=== PATIENT | female | born 1955 | race Caucasian/White ===

== ENCOUNTER 2024-09-20 10:13 | Emergency (ER) | payer MEDICARE, SELFPAY ==
--- NOTE | 2024-09-20 10:00 | RT.EKG_ITS ---
APPROVED REPORT Exam: Resting ECG Reason for Exam: dizziness Patient Location: E HR:70 bpm ECG Measurements Heart Rate 70 AXIS MA 157 P 69 QRSd 79 QRS 77 QT 408 T 60 QTc 441 Conclusion Sinus rhythm...normal P axis, V-rate 60- 99
[2024-09-20 10:15] VITALS: BP 129/76; PULSE 68; RESP 10; TEMP 36.6; O2SAT 96
[2024-09-20 10:26] VITALS: RESP 16
--- NOTE | 2024-09-20 10:31 | ED.GENADUL_ITS ---
Discharge Plan Disposition Patient Disposition: Home Condition: Stable Discharge Details Clinical Impression: Dizziness Primary Care Provider: Deanne,Local ED Provider: Dax Cazares Home Meds and New Rx's Prescriptions: New meclizine 25 mg tablet 25 mg PO BID PRN (Reason: dizziness) Qty: 30 0RF Discharge Instructions Additional Instructions: Follow-up with your primary care provider especially your symptoms are continuing in a week. You can take the meclizine as needed for dizziness. If you feel more ill or have new symptoms such as severe chest pain or weakness return to the emergency department for reevaluation HPI General Date/Time Provider Initiated Documentation: 09/20/24 10:17 . Limitations to Documentation: no limitations . Information obtained by: patient . History of Present Illness 69 year old F presents to the emergency department with the chief complaint of dizzy, described as moderate, Patient started experiencing this unknown (when she woke up) and it has been constant. No relieving factors improve symptom(s), No exacerbating factors reported . Patient notes denies chest pain, fever/chills, nausea/vomiting and shortness of breath. Patient did receive the following treatments prior to arrival, none Related Data Home Medications ?Medication ?Instructions ?Recorded ?Confirmed meclizine 25 mg tablet 25 mg PO BID PRN dizziness # 30 tabs 09/20/24 Previous Rx's ?Medication ?Instructions ?Recorded meclizine 25 mg tablet 25 mg PO BID PRN dizziness # 30 tabs 09/20/24 Allergies Allergy/AdvReac Type Severity Reaction Status Date / Time Sulfa (Sulfonamide Allergy Intermediate Unknown Verified 09/20/24 10:21 Antibiotics) Penicillins Allergy Unknown Verified 09/20/24 10:21 General Stated Complaint: Dizzy/Sync LIZET: 3 Review of Systems All systems reviewed & are unremarkable except as noted in HPI and below Constitutional Constitutional: Denies chills, Denies fever(s) and Denies weakness ENT Ears, Nose, Mouth, and Throat: Reports dizziness Cardiovascular Cardiovascular: Denies chest pain and Denies dyspnea Respiratory Respiratory: Denies cough and Denies dyspnea Gastrointestinal Gastrointestinal: Denies abdominal pain, Denies nausea and Denies vomiting Neurologic Neurologic: Reports dizziness and Denies weakness Exam Const General: no acute distress Orientation: alert HENMT Head: normal to inspection Ears: external ears normal, TM's normal bilaterally and EAC's normal General nose exam: external nose normal Mouth: moist mucous membranes Eyes General: appearance normal, both eyes and all related structures Neck Neck: normal visual inspection Resp Effort & Inspection: normal respiratory effort and able to speak in complete sentences Cardio Rate: regular rate Skin General skin exam: no rashes or lesions noted Neuro General: patient alert, patient oriented x3 and CN's II-XI intact bilaterally Cranial Nerves: PERRL Cognition: normal cognition Speech: speech normal Motor: muscle tone normal throughout Sensory Exam: no sensory deficits noted Extrem General: normal to inspection Psych Mental Status: mental status grossly normal Course Vital Signs Vital signs: Vital Signs Temperature 36.6 C 09/20/24 10:15 Pulse 68 09/20/24 10:15 Respiratory Rate 10 L 09/20/24 10:15 Blood Pressure 129/76 09/20/24 10:15 Pulse Oximetry 96 09/20/24 10:15 Temperature 36.6 C 09/20/24 10:15 Temperature Source Oral 09/20/24 10:15 Pulse 68 09/20/24 10:15 Respiratory Rate 10 L 09/20/24 10:15 Blood Pressure 129/76 09/20/24 10:15 Blood Pressure Position Sitting 09/20/24 10:15 Pulse Oximetry 96 09/20/24 10:15 Oxygen Delivery Method Room Air 09/20/24 10:15 Oxygen Flow Rate 0 09/20/24 10:15 Medical Decision Making 69-year-old female who denies any chronic medical problems comes in with feeling dizzy as if the room is spinning. She says that the symptoms started when she woke up this morning. She denies falling, no chest pain or difficulty breathing. No severe head pain. She is oriented x 1 on arrival. She is speaking in full sentences with normal speech. Cranial nerves II through XII are intact, she has no drift. Her NIH on my exam is 0. Suspect this could just be BPPV but given her age we will proceed with CBC CMP and troponins and also see if we can obtain an MRI to evaluate for possible cerebellar CVA though this is low on my differential given lack of other neurological deficits on exam. Given she woke up with the symptoms she is not a lytic candidate. Labs show no emergent findings. Patient declined to go to MRI. She has medical decision-making capacity and understands the reasoning for the MRI was to evaluate for possible signs of a cerebellar CVA, suspicion for this is low. She understands the risks of missing this including having more strokes could potentially cause her to permanently be disabled or potentially if she is willing to accept these risks. She is feeling better after fluids and meclizine. I suspect this likely is peripheral vertigo. She will follow-up with her PCP if not improving and return precautions given Differential Diagnosis Differential Diagnosis: bppv, cerebellar cva, electrolyte abnormality Lab Data Lab results reviewed: Yes I reviewed the patient's lab results. ECG Data Attestation: I personally reviewed and interpreted this ECG (s) as follows: Prior ECG tracings: not available for review Interpretation: sinus rate of 70 no stemi PFSH All Active Problems (Updated 09/20/24 @ 12:44 by Dax Cazares MD) Dizziness (Acute) Social History Smoking risk assessment performed?: No Do you feel safe at home: Yes Do you feel safe in your relationship?: Yes
[2024-09-20 10:49] LABS: Abs Immature Grans 0.01 10^3/uL (0.0-0.06); HCT 45.0 % (36.0-46.0); HGB 15.3 g/dL (11.2-15.7); Immature Grans % 0.1 %; MCH 28.5 pg (27.0-33.0); MCHC 34.0 % (32.0-36.0); MCV 84 fL (80-95); MPV 10.0 fL (8.0-11.0); Platelet Count 204 10^3/uL (130-400); RBC 5.37 10^6/uL (3.93-5.22); RDW 12.6 % (11.7-14.6); RDW-SD 38.4 fL; WBC 7.13 10^3/uL (4.4-10.8)
[2024-09-20] MEDS: Normal Saline 1,000 ML 1000 ML IV (10:52)
[2024-09-20 11:15] LABS: Magnesium 2.3 mg/dL (1.8-2.4); Troponin I 7 ng/L (<or=51)
[2024-09-20 11:18] LABS: ALT 29 U/L (14-59); AST 21 U/L (15-37); Albumin 4.0 g/dL (3.4-5.0); Alkaline Phosphatase 145 U/L (46-116); Anion Gap 7.3 mmol/L (3-11); BUN 12 mg/dL (7-18); Bilirubin, Total 0.5 mg/dL (0.2-1.0); CO2 29.7 mmol/L (21.0-32.0); Calcium 9.2 mg/dL (8.5-10.1); Chloride 107 mmol/L (98-107); Estimated GFR 92.41 (mL/min/1.73m2); Glucose 91 mg/dL (74-106); Potassium 3.9 mmol/L (3.5-5.1); Sodium 144 mmol/L (136-145); TSH (W/Ref FT4) 0.14 uIU/mL (0.36-3.74); Total Protein 7.5 g/dL (6.4-8.2)
--- NOTE | 2024-09-20 11:52 | NUR.NOTE ---
Nursing Note: PT declined MRI said if there are any findings she would not intervene anyway
[2024-09-20 11:53] LABS: Glucose Negative (Negative)
[2024-09-20 12:20] LABS: Troponin I 6 ng/L (<or=51)
[2024-09-20 12:59] VITALS: BP 133/69; PULSE 60; TEMP 35.9; O2SAT 98
== END 2024-09-20 13:00 | disposition home or self-care (01) ==
PROVIDERS: Emergency Provider Emergency Medicine
DX: R42 Dizziness and giddiness (principal)
CPT/HCPCS: 36416; 80053; 82962; 93005; 96360; 99284; 81003; 83735; 84439; 84443; 84484; 85025; 93010